=== PATIENT | male | born 2005 | race Caucasian/White ===

== ENCOUNTER 2025-04-26 12:43 | Outpatient (AMB) | payer OTHER, SELFPAY ==
--- NOTE | 2025-04-26 12:53 | A.OFFPC_ITS ---
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: No Accompanied by: Self / Same As Patient Allergies Seasonal Allergies Allergy (Severe, Verified 04/26/25 13:09) itching cat dander (cats) Allergy (Intermediate, Verified 04/26/25 13:29) Itching Medication List - Last Reconciled 04/26/25 by GAVIOTA Macario cetirizine (Zyrtec) 5 mg PO DAILY PRN Tobacco use date assessed: 04/26/25 Dental Screening Dental Screen Date: 04/26/25 Did you have a dental visit in the last 12 months?: Yes Did you have a dental problem in the last 6 months where you did not have access to dental care?: No Was dental information given to patient?: Patient has 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 No concerns today. 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 He is up-to-date on his preventative screenings. We will order labs and advise [facility] Social History Alcohol intake: current Patient Tobacco Use Status: Never used Tobacco e-Cigarette/Vaping Use: Never Used Current occupational status: employed Current occupation: [employer] Cognitive needs: No Hearing needs: No Vision needs: No Questionnaire PHQ-9 Over the last 2 weeks, how often have you been bothered by any of the following problems? 1. Little interest or pleasure in doing things: not at all 2. Feeling down, depressed, or hopeless: not at all 3. Trouble falling or staying asleep, or sleeping too much: not at all 4. Feeling tired or having little energy: several days 5. Poor appetite or overeating: not at all 6. Feeling bad about yourself - or that you are a failure or have let yourself or your family down: several days 7. Trouble concentrating on things, such as reading the newspaper or watching television: not at all 8. Moving or speaking so slowly that other people could have noticed. Or the opposite - being so fidgety or restless that you have been moving around a lot more than usual: not at all 9. Thoughts that you would be better off or of hurting yourself in some way: not at all Total score: 2 Source: Developed by Drs. William Grant, Jennifer Mills, Michel Oneill and colleagues, with an educational flower from [employer]. Thrive Questionnaire Date Thrive assessed: 04/26/25 I am a: Patient What is your living situation today?: I have a steady place to live Within the past 12 months, did the food you bought not last and you didn't have the money to get more?: Never true Within the past 12 months, did you worry whether your food would run out before you got money to buy more?: Never true Do you have trouble paying for medicines?: No Do you have trouble getting transportation to medical appointments?: No Do you have trouble paying your heating and electricity bill?: No Do you have trouble taking care of your child, family member or friend?: No Do you have trouble with day-to-day activities such as bathing, preparing meals, shopping, managing finances, etc.?: No Are you currently unemployed and looking for a job?: No Are you interested in more education?: No Please select the resources that you would like help with: None Currently or been in a relationship where the following occur: No concerns reported THRIVE Score: 0 AUDIT C Alcohol Use Questionnaire (AUDIT-C) 1. How often do you have a drink containing alcohol?: Monthly or less 2. How many drinks containing alcohol do you have on a typical day when you are drinking?: 1 or 2 3. How often do you have six or more drinks on one occasion?: Never Total Score: 1 KUNAL-7 AMB Questionnaire KUNAL-7 Date KUNAL - 7 assessed: 04/26/25 Feeling nervous, anxious, or on edge: 1 = Several days Not being able to stop or control worryin = Several days Worrying too much about different things: 1 = Several days Trouble relaxin = Not at all Being so restless that it is hard to sit still: 0 = Not at all Becoming easily annoyed or irritable: 0 = Not at all Feeling afraid as if something awful might happen: 0 = Not at all Total KUNAL-7 score (0-4 normal; 5-9 mild; 10-14 moderate; 15-21 severe): 3 Source: Developed by Drs. William Grant, Jennifer Mills, Michel Oneill and colleagues, with an educational flower from [employer]. Review of Systems Const Denies headache(s) Eyes Denies loss of vision ENT Denies vertigo, Denies dizziness, Denies headache(s) and Denies sore throat Card Denies chest pain, Denies leg edema and Denies lightheadedness Resp Denies cough, Denies hemoptysis and Denies wheezing GI Denies abdominal pain, Denies melena, Denies constipation, Denies diarrhea and Denies vomiting Denies dysuria, Denies urinary frequency and Denies urinary urgency Musc Denies arthralgias, Denies joint swelling, Denies numbness and Denies tingling Neuro Denies Abnormal speech present, Denies behavioral changes, Denies vertigo, Denies dizziness, Denies headache(s), Denies loss of vision, Denies memory loss, Denies numbness and Denies tingling Psych Denies anxiety, Denies behavioral changes, Denies depression, Denies memory loss and Denies panic attacks Mumtaz/Lymph Denies easy bleeding and Denies easy bruising Aller/Immun Denies wheezing Physical exam (Primary Care) Vital Signs: Last Vital Signs Temp 97.3 F 04/26/25 12:57 Pulse 86 04/26/25 12:57 Resp 18 04/26/25 12:57 BP 124/62 04/26/25 12:57 Pulse Ox 97 04/26/25 12:57 Oxygen Delivery Method Room Air 04/26/25 12:57 BMI result Body Mass Index 26.9 Tobacco/Smoking Status: Tobacco use Status Tobacco use date assessed 04/26/25 04/26/25 13:03 Patient Tobacco Use Status Never used Tobacco 04/26/25 13:03 e-Cigarette/Vaping Use Never Used 04/26/25 13:03 PHQ-9: PHQ-9 Score PHQ-9: Total score 2 04/26/25 13:18 Thrive Assessment: Date of Thrive Assessment Date Thrive assessed 04/26/25 04/26/25 13:03 Currently or been in a relationship where the following occur: No concerns reported Const General: healthy appearing, no acute distress, alert and awake Nutritional Appearance: well nourished Orientation/consciousness: oriented to person, oriented to place and oriented to time HENMT Ears: TM's normal bilaterally General nose exam: Normal nasal mucous membranes and turbinates present Eyes Conjunctivae: conjunctivae normal Sclerae: sclerae normal Pupils: Equal, round and reactive pupils present Neck Neck: Yes no lymphadenopathy and Yes no JVD Thyroid: Thyroid normal Carotids: no bruits Resp Effort & Inspection: normal respiratory effort and not tachypneic Auscultation: no crackles, no rales, no rhonchi and no wheezes Cardio Rate: regular rate Rhythm: regular rhythm Heart sounds: no murmurs and normal S1 and S2 GI Palpation (GI): Soft to palpation, nontender, no hepatomegaly and no splenomegaly Auscultation: normal bowel sounds Skin General skin exam: no rashes or lesions noted and dry skin Neuro General: oriented to person, oriented to place and oriented to time Cranial nerves: Yes Equal, round and reactive pupils present Speech: No Abnormal speech present Gait exam (Neuro): Normal gait present Motor exam (neuro): no tremor noted Deep tendon reflexes (DTR's): Right triceps reflex intensity grade: 2+, Left triceps reflex intensity grade: 2+, Rt Biceps (C5, C6): 2+, Left biceps reflex intensity grade: 2+, Right brachioradialis reflex intensity grade: 2+, Left brachioradialis reflex intensity grade: 2+, Right patellar reflex intensity grade: 2+ and Left patellar reflex intensity grade: 2+ Extrem Right upper extremity: full ROM Left upper extremity: full ROM Right lower extremity: full ROM; no edema Left lower extremity: full ROM; no edema Psych Mental Status: mental status grossly normal Speech and movement: Normal speech and movement present Affect: normal affect Attitude: cooperative Thought process: Normal thought process present Coding Level of Care Code New Pt Prev Care [id number] Diagnoses Encounter for medical examination to establish care Z00.00 Environmental allergies Z91.09 Cat allergies J30.81 Time Spent (min) 34 Assessment & Plan Assessment & Plan (1) Encounter for medical examination to establish care: Code(s): Z00.00 - Encounter for general adult medical examination without abnormal findings Category: Medical Plan: New patient has been to the doctors for 4-5 years. 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 The physical exam was completed and labs were ordered, will advise when resulted. (2) Environmental allergies: Code(s): Z91.09 - Other allergy status, other than to drugs and biological substances Category: Medical Plan: Limit exposure to allergens Air purifiers and dust filters Air conditioner in house, especially where sleeping Continue Zyrtec otc as needed (3) Cat allergies: Code(s): J30.81 - Allergic rhinitis due to animal (cat) (dog) hair and dander Category: Medical Plan: Reports that he found out that he is allergy to cats and his girfiend has a cat, but he has been managing fairly well on antihistamines. Plan Return in 1 year for physical exam Orders: Orders Complete Blood Count Auto Diff 04/26/25 Z00. - Encounter for general adult medical examination without abnormal findings TSH reflex Free T4 04/26/25 Z00. - Encounter for general adult medical examination without abnormal findings UA CC w/rflx Micro + Cult 04/26/25 Z00. - Encounter for general adult medical examination without abnormal findings Comprehensive [place]. Panel Fast 04/26/25 Z. - Encounter for general adult medical examination without abnormal findings Lipid Panel 04/26/25 Z. - Encounter for general adult medical examination without abnormal findings Vitamin D 25-OH Total 04/26/25 Z00. - Encounter for general adult medical examination without abnormal findings
[2025-04-26 12:57] VITALS: BP 124/62; PULSE 86; RESP 18; TEMP 36.3; O2SAT 97; BMI 26.9
== END 2025-04-26 13:28 | disposition home or self-care (01) ==
DX: Z00.00 Encounter for general adult medical examination without abnormal findings (principal); Z91.09 Other allergy status, other than to drugs and biological substances; J30.81 Allergic rhinitis due to animal (cat) (dog) hair and dander